=== PATIENT | male | born 1970 | race Hispanic/Latino ===

== ENCOUNTER 2020-02-14 16:30 | Emergency (ER) | payer OTHER ==
[2020-02-14 17:01] LABS: Hematocrit 44.1 % (35.5-45.6); Hemoglobin 15.5 gm/dl (11.8-15.2); Mean Corpuscular HGB Conc 35 % (32-34); Mean Corpuscular Volume 102 fl (84-94); Platelet Count 138 K/mm3 (140-440); Red Blood Count 4.32 M/mm3 (3.65-5.03); Red Cell Distribution Width 14.4 % (13.2-15.2)
[2020-02-14 17:21] LABS: BUN/Creatinine Ratio 10; Blood Urea Nitrogen 7 mg/dL (9-20); Calcium 9.3 mg/dL (8.4-10.2); Hemolysis Index 11
[2020-02-14 17:52] LABS: Basophils % (Manual) 0 % (0.0-1.8); Total Cells Counted 100
[2020-02-14 17:53] LABS: Anisocytosis 1+; Hypochromasia 1+; Large Platelets 1+
[2020-02-14] MEDS ORDERED: LORazepam 2 MG/ML VIAL IV PRN ×2 (20:30)
[2020-02-14] MEDS ORDERED: ONDANSETRON 4 MG/2 ML INJ IV ONE (20:33)
--- NOTE | 2020-02-14 20:34 | Emergency Department Report ---
<YUSUF GOODMAN - Last Filed: 02/14/20 20:31> ED Alcohol HPI - General Chief Complaint: Alcohol Stated Complaint: ETOH WITHDRAWL Time Seen by Provider: 02/14/20 20:29 Source: patient Mode of arrival: Ambulatory Limitations: No Limitations - History of Present Illness Initial Comments: Patient is 49 years old male with history of chronic alcohol abuse. Patient presented to the ER for evaluation of alcohol withdrawal and he also desires to go for alcohol rehab. Patient stated that last drink was this morning. Patient stated that he drinks daily. Patient reporting shaking and tremors and he also has some visual hallucination. Patient also reported history of alcohol withdrawal seizure. Patient currently denying any fever, chills, cough, runny nose or congestion. Patient stated that he is slightly nauseated. MD Complaint: alcohol withdrawal, desires rehab, medical clearance for det Chronic Alcohol Use: Yes Previous Visits for Alcohol Intoxication?: Yes Recent Trauma: No Treatments Prior to Arrival: none - Related Data Home Medications Medication Instructions Recorded Confirmed Last Taken Atorvastatin Calcium [Lipitor] 20 mg PO DAILY 07/04/18 07/04/18 Unknown Dextroamphetamine/Amphetamine 10 mg PO DAILY@1200 07/04/18 07/04/18 Unknown [Adderall 10 mg Tablet] Ergocalciferol (Vitamin D2) 50,000 unit PO QWEEK 07/04/18 07/04/18 Unknown [Drisdol] Folic Acid [Folvite] 1 mg PO QDAY 07/04/18 07/04/18 Unknown Potassium Chloride [Klor-Con 10] 10 meq PO QDAY 07/04/18 07/04/18 Unknown Previous Rx's Medication Instructions Recorded Last Taken Type Folic Acid [Folvite] 1 mg PO DAILY #30 tablet 07/10/18 Unknown Rx Multivitamin Tab W-MINERAL 1 each PO QDAY tablet 07/10/18 Unknown Rx [Multiple Vitamin/Mineral (Theragran M)] Thiamine [Vitamin B-1] 100 mg PO QDAY #30 tablet 07/10/18 Unknown Rx chlordiazePOXIDE [Librium] 25 mg PO Q8H #14 capsule 07/10/18 Unknown Rx Allergies Allergy/AdvReac Type Severity Reaction Status Date / Time No Known Allergies Allergy Unverified 07/04/18 11:29 ED Review of Systems Comment: All other systems reviewed and negative Constitutional: denies: chills, fever Respiratory: denies: cough, orthopnea, shortness of breath, SOB with exertion, wheezing Cardiovascular: palpitations. denies: chest pain Gastrointestinal: nausea. denies: abdominal pain, vomiting, diarrhea, constipation, hematemesis, melena, hematochezia Musculoskeletal: denies: back pain Psychiatric: visual hallucinations. denies: anxiety, depression, auditory hallucinations, homicidal thoughts, suicidal thoughts ED Past Medical Hx - Past Medical History Hx Seizures: Yes (WITHDRAW SZ) - Social History Smoking Status: Former Smoker Substance Use Type: Alcohol - Medications Home Medications: Home Medications Medication Instructions Recorded Confirmed Last Taken Type Atorvastatin Calcium [Lipitor] 20 mg PO DAILY 07/04/18 07/04/18 Unknown History Dextroamphetamine/Amphetamine 10 mg PO DAILY@1200 07/04/18 07/04/18 Unknown History [Adderall 10 mg Tablet] Ergocalciferol (Vitamin D2) 50,000 unit PO QWEEK 07/04/18 07/04/18 Unknown History [Drisdol] Folic Acid [Folvite] 1 mg PO QDAY 07/04/18 07/04/18 Unknown History Potassium Chloride [Klor-Con 10] 10 meq PO QDAY 07/04/18 07/04/18 Unknown History Folic Acid [Folvite] 1 mg PO DAILY #30 tablet 07/10/18 Unknown Rx Multivitamin Tab W-MINERAL 1 each PO QDAY tablet 07/10/18 Unknown Rx [Multiple Vitamin/Mineral (Theragran M)] Thiamine [Vitamin B-1] 100 mg PO QDAY #30 tablet 07/10/18 Unknown Rx chlordiazePOXIDE [Librium] 25 mg PO Q8H #14 capsule 07/10/18 Unknown Rx ED Physical Exam - General Limitations: No Limitations General appearance: alert, in no apparent distress, anxious - Head Head exam: Present: atraumatic, normocephalic, normal inspection - Eye Eye exam: Present: normal appearance - ENT ENT exam: Present: normal exam, normal orophraynx, mucous membranes moist - Neck Neck exam: Present: normal inspection, full ROM. Absent: tenderness, meningismus, lymphadenopathy, thyromegaly - Respiratory Respiratory exam: Present: normal lung sounds bilaterally - Cardiovascular Cardiovascular Exam: Present: tachycardia, normal heart sounds. Absent: systolic murmur - GI/Abdominal GI/Abdominal exam: Present: soft, normal bowel sounds. Absent: distended, tenderness, guarding, rebound, rigid, organomegaly, mass, bruit, pulsatile mass, hernia - Extremities Exam Extremities exam: Present: normal inspection, full ROM, normal capillary refill - Back Exam Back exam: Present: normal inspection, full ROM. Absent: CVA tenderness (R), CVA tenderness (L) - Neurological Exam Neurological exam: Present: alert, oriented X3, CN II-XII intact, normal gait, reflexes normal. Absent: motor sensory deficit - Psychiatric Psychiatric exam: Present: normal mood, anxious. Absent: depressed, agitated, flat affect, manic, homicidal ideation, suicidal ideation - Skin Skin exam: Present: warm, intact, normal color ED Medical Decision Making - Lab Data Result diagrams: 02/14/20 16:40 02/14/20 16:40 ED Disposition Clinical Impression: Alcohol abuse, Medical clearance for psychiatric admission Disposition: [id number] PSY HOSP/PSY UNIT Condition: Stable Instructions: Abuse of Alcohol (ED) Additional Instructions: To be transferred directly to [facility] for alcohol treatment <SHREYA CHAVEZ - Last Filed: 02/15/20 12:14> ED Review of Systems ROS: Stated complaint: ETOH WITHDRAWL Other details as noted in HPI ED Course Vital Signs 02/14/20 02/14/20 02/14/20 16:35 19:53 19:56 Temperature 98.1 F 98.1 F Pulse Rate 117 H 86 Respiratory 18 20 20 Rate Blood Pressure 122/91 Blood Pressure 113/73 [Right] O2 Sat by Pulse 96 100 100 Oximetry 02/14/20 02/14/20 02/14/20 21:44 21:45 22:00 Temperature Pulse Rate 90 Respiratory 11 L Rate Blood Pressure 125/84 Blood Pressure [Right] O2 Sat by Pulse 94 93 97 Oximetry 02/14/20 02/14/20 02/14/20 22:15 22:30 23:40 Temperature 98.3 F Pulse Rate 82 87 90 Respiratory 17 18 24 Rate Blood Pressure 125/84 98/72 Blood Pressure 104/71 [Right] O2 Sat by Pulse 97 95 95 Oximetry 02/15/20 02/15/20 02/15/20 00:15 00:30 00:45 Temperature Pulse Rate 86 84 74 Respiratory 14 16 12 Rate Blood Pressure 90/53 90/52 92/62 Blood Pressure [Right] O2 Sat by Pulse 93 93 95 Oximetry 02/15/20 02/15/20 02/15/20 01:30 01:45 02:00 Temperature Pulse Rate 72 69 66 Respiratory 17 13 14 Rate Blood Pressure 92/61 99/67 101/70 Blood Pressure [Right] O2 Sat by Pulse 97 96 96 Oximetry 02/15/20 02/15/20 02/15/20 02:15 02:45 03:00 Temperature Pulse Rate 65 65 64 Respiratory 15 14 17 Rate Blood Pressure 103/69 106/67 104/67 Blood Pressure [Right] O2 Sat by Pulse 96 97 95 Oximetry 02/15/20 02/15/20 02/15/20 03:15 03:30 04:00 Temperature Pulse Rate 75 72 72 Respiratory 12 14 13 Rate Blood Pressure 103/69 95/63 93/64 Blood Pressure [Right] O2 Sat by Pulse 97 95 95 Oximetry 02/15/20 02/15/20 02/15/20 04:30 04:45 05:00 Temperature Pulse Rate 78 75 83 Respiratory 16 13 17 Rate Blood Pressure 113/79 107/76 111/76 Blood Pressure [Right] O2 Sat by Pulse 97 97 94 Oximetry 02/15/20 02/15/20 02/15/20 05:46 06:00 06:15 Temperature Pulse Rate 72 69 65 Respiratory 15 13 14 Rate Blood Pressure 109/76 120/77 114/77 Blood Pressure [Right] O2 Sat by Pulse 95 97 96 Oximetry 02/15/20 02/15/20 02/15/20 06:30 06:45 07:25 Temperature Pulse Rate 69 65 61 Respiratory 14 13 13 Rate Blood Pressure 119/87 119/86 Blood Pressure 106/72 [Right] O2 Sat by Pulse 97 96 97 Oximetry 02/15/20 09:57 Temperature Pulse Rate 64 Respiratory 16 Rate Blood Pressure Blood Pressure 114/74 [Right] O2 Sat by Pulse 98 Oximetry - Reevaluation(s) Reevaluation #1: 02/15/20 10:56 I had mental health evaluate the patient and apparently patient has been accepted to [facility] and just needed medical clearance. Patient did andie arently receive IV Ativan at 4:26 AM. repeat alcohol is 0. Pt with mild tremors but without tachycardia or htn. Pt's last CIWA score was 5. Ativan 2mg IV will be provided.. Mental health provider will arrange for transport to [facility] for detox treatment since he is currently medically cleared. Pt received a dose of po thiamine and folate in ed. 02/15/20 12:13 pt resting without tremors after ativan 2mg IV. Transport here to pic up patient to take him to [facility]. ED Medical Decision Making - Lab Data Result diagrams: 02/14/20 16:40 02/14/20 16:40 Critical care attestation.: If time is entered above; I have spent that time in minutes in the direct care of this critically ill patient, excluding procedure time. ED Disposition Is pt being admited?: No Does the pt Need Aspirin: No Time of Disposition: 10:58 (transport arrived at 12:14pm )
[2020-02-14] MEDS: LORazepam 2 MG/ML VIAL IV PRN (23:21)
[2020-02-15] MEDS ORDERED: SODIUM CHLORIDE 0.9% 1000 ML 1,000 ML ONE (00:39)
[2020-02-15] MEDS ORDERED: SODIUM CHLORIDE 0.9% 1000 ML 1,000 ML IV ONE ×2 (00:39→04:23)
[2020-02-15] MEDS: LORazepam 2 MG/ML VIAL IV PRN (04:26)
[2020-02-15] MEDS ORDERED: THIAMINE 100 MG TAB PO ONE (08:03)
[2020-02-15] MEDS ORDERED: FOLIC ACID 1 MG TAB PO ONE (08:04)
[2020-02-15 08:23] LABS: Bilirubin,Urine NEG (Negative); Blood,Urine NEG (Negative); Color,Urine Yellow (Yellow); Mucus,Urine FEW /HPF; Protein,Urine <15 mg/dL mg/dL (Negative); WBC,Urine < 1.0 /HPF (0.0-6.0)
[2020-02-15 08:31] LABS: Amphetamine Screen,Urine PRESUMPTIVE NEGATIVE; Cannabinoid Screen,Urine PRESUMPTIVE NEGATIVE; Cocaine Screen,Urine PRESUMPTIVE NEGATIVE; Methadone Screen,Urine PRESUMPTIVE NEGATIVE; Opiate Screen,Urine PRESUMPTIVE NEGATIVE
[2020-02-15 09:31] LABS: Benzodiazepines Screen,Urine PRESUMPTIVE POSITIVE
[2020-02-15] MEDS ORDERED: LORazepam 2 MG/ML VIAL IV ONE (11:00)
[2020-02-15 13:46] VITALS: BP 114/82
== END 2020-02-15 12:30 ==
LOC: ED 16:30
DX: F10.10 Alcohol abuse, uncomplicated (principal); Z04.6 Encounter for general psychiatric examination, requested by authority; R56.9 Unspecified convulsions; Z87.891 Personal history of nicotine dependence; Z79.899 Other long term (current) drug therapy
CPT/HCPCS: 36415; 80048; 80307; 81001; 83690; 83735; 85007; 85025; 96374; 96375; 96376; 99285; J2060; J2405; J7030; 80320; G0480